=== PATIENT | female | born 1955 | race Caucasian/White ===

== ENCOUNTER 2025-07-26 09:24 | Outpatient (CLI) | payer MEDICARE | END 2025-07-26 09:25 | disposition home or self-care (01) | LOC: CSHSLEEP 09:24 | PROVIDERS: ATTEND Internal Medicine Hospice and Palliative Medicine | DX: G47.33 Obstructive sleep apnea (adult) (pediatric) (principal); R53.83 Other fatigue; E66.9 Obesity, unspecified; Z68.41 Body mass index [BMI] 40.0-44.9, adult; I10 Essential (primary) hypertension | CPT/HCPCS: 95811 ==